=== PATIENT | female | born 1980 | race Asian ===

== ENCOUNTER → 2018-06-13 | Outpatient (CLI) | payer OTHER | LOC: FIMAGING 12:08 | PROVIDERS: ATTEND Advanced Practice Midwife | DX: O09.522 Supervision of elderly multigravida, second trimester (principal); Z3A.19 19 weeks gestation of pregnancy ==

== ENCOUNTER 2018-11-04 05:23 | Inpatient (IN) | payer OTHER ==
[2018-11-04] MEDS ORDERED: EPSOM SALT 454 GM TP PRN (05:34)
[2018-11-04] MEDS ORDERED: OLIVE OIL 118 ML BTL MISC PRN (05:34)
[2018-11-04] MEDS ORDERED: MISOPROSTOL 200 MCG TAB PR PRN (05:34)
[2018-11-04] MEDS ORDERED: IBUPROFEN 600 MG TAB PO PRN (05:34)
[2018-11-04] MEDS ORDERED: LR 1,000 ML IV PRN (05:34)
[2018-11-04] MEDS ORDERED: TERBUTALINE SULFATE 1 MG/ML VIAL IV PRN (05:34)
[2018-11-04] MEDS ORDERED: LIDOCAINE 1% 300 MG/30 ML SDV SC PRN (05:34)
[2018-11-04] MEDS ORDERED: OXYTOCIN/RINGERS LACTATE 1,000 ML IV PRN (05:34)
[2018-11-04 06:06] LABS: PLATELET COUNT 190 10^3/uL (150-400)
[2018-11-04] MEDS ORDERED: TERBUTALINE SULFATE 1 MG/ML VIAL ONE (06:45)
[2018-11-04] MEDS ORDERED: OLIVE OIL 118 ML BTL ONE (06:45)
[2018-11-04] MEDS ORDERED: AMMONIA AROMATIC 1 EACH AMP IH ONE (06:45)
[2018-11-04] MEDS ORDERED: LIDOCAINE 1% 300 MG/30 ML SDV ONE (06:45)
[2018-11-04] MEDS ORDERED: MISOPROSTOL 200 MCG TAB ONE (06:46)
[2018-11-04] MEDS ORDERED: OXYTOCIN 10 UNIT/ML VIAL ONE (06:46)
--- NOTE | 2018-11-04 07:47 | PDGENHP ---
History and Physical History and Physical: Care: [facility] HPI: Patient is a 37 yo G 2 P 1 @ 40 weeks that presents to L&D with complaints of strong uterine contractions. Pt was scheduled for elective IOL, but presented in active labor. EDC: 11/04/18 which is based on LMP: 01/28/18 which is known and consistent with Ultrasound at 9 weeks. Her is complicated by: AMA Review of Systems: Constitutional: Denies any fever, chills, or fatigue HEENT: denies any visual changes, difficulty swallowing, hearing loss Cardiovascular: Denies any chest pain, palpitations, leg swelling Respiratory: denies any cough, wheezing, or shortness of breathe GI: Denies any nausea, vomiting, diarrhea, constipation : denies any dysuria, urgency, frequency, vaginal bleeding Musculoskeletal: denies any muscle or bone pain Skin: denies any rashes Neuro: denies any headache, seizures, lightheadedness, dizziness, or loss of consciousness Psychiatric: denies any depression, anxiety, or SI/HI thoughts HISTORY: Previous OB history: 6 # 1 oz 2016 Past medical history: migraine with aura occasional Past surgical history: appendectomy Social: Denies any alcohol, tobacco, or drug use. Family history: Father type 1 diabetes Medications: PNV Allergies (list reaction): mild shell fish allergy LABS: Rh: A+ ABS: Neg Rubella: Non-Immune HbsAg: NR HIV: NR VDRL: NR 1hr: 70 GC: Neg Chlamydia: Neg Pap: Normal GBS: neg BMI: (prepreg) 20.5 PHYSICAL EXAM: Constitutional: WN, A&Ox3 HEENT: normocephalic atraumatic, supple Skin: Warm, dry, intact Heart: RRR, no murmur Chest: CTA-B Abdomen: Soft, nontender, gravid SVE: 9/100/0 Extremities: no edema, negative homans sign Neuro: grossly normal Psych: normal affect assessment: FHT baseline 145 +accels, occasional variable decels, moderate variability Contractions: toco q 5 Assessment: 1) 37 yo G 2 P 1 with IUP@ 40 2) active labor 3) GBS neg 4) Cat 1 FHR tracing Plan: 1) Admit to L&D 2) anticipate
--- NOTE | 2018-11-04 08:50 | OBDEL ---
Info Type: Vaginal Presentation at Delivery: Vertex L&D Analgesia/Anesthesia Type: None GBS+: No - Hospital Course Intrapartum: 11/04/18 08:46 progressed rapidly to complete after arrival at hospital. FHT reassuring with intermittent auscultation. Indications for Delivery: Spontaneous Labor Vaginal Delivery - Delivery Provider Delivery Physician/CNM: Symone Frey - Labor and Delivery Onset of Contractions Date: 11/04/18 Onset of Contractions Time: 01:00 Onset of Contractions Type: Spontaneous Rupture of Membranes Date: 11/04/18 Rupture of Membranes Time: 07:27 Rupture of Membranes Type: Artificial Amniotic Fluid Color: Clear Dilation Complete Date: 11/04/18 Dilation Complete Time: 07:45 Placenta Delivery Date: 11/04/18 Placenta Delivery Time: 08:25 Total Hours of Labor: 7 Non-surgical Procedures: Amniotomy Vaginal Sponge Count Correct: Yes Vaginal Needle Count Correct: Yes Vaginal Sweep Performed: Yes Delivery Events: None Delivery Comment: intact perineum [place] Data ROSY: 11/04/18 Gestational Age: 40 week(s) and 0 day(s) Johnson Delivery Date: 11/04/18 Delivery Time: 08:15 Sex of Infant: Male Score (1 Min): 9 Score (5 Min): 9 ICD10 Worksheet Patient Problems: Problems Problem Status Onset (normal spontaneous vaginal delivery) Acute - ICD10 Problem Qualifiers (1) (normal spontaneous vaginal delivery)
[2018-11-04] MEDS: IBUPROFEN 600 MG TAB PO SCH ×2 (15:23→21:40)
[2018-11-04] MEDS: ACETAMINOPHEN 325 MG TAB PO SCH ×2 (18:43→22:43)
[2018-11-05 07:20] VITALS: BP 112/51
[2018-11-05] MEDS: IBUPROFEN 600 MG TAB PO SCH (12:10)
--- NOTE | 2018-11-05 12:10 | OBPP ---
Progress Note Assessment/Plan: Assessment: Normal PP progress. Breast feeding well. Plan: D/C home today. 11/05/18 12:09 Subjective/ Course: 11/05/18 12:10 Bleeding normal. Denies pain. Breast feeding well. Objective: 11/04/18 05:50 Patient ABO/Rh A POSITIVE 11/04/18 05:50 Temp Pulse Resp BP Pulse Ox 36.5 C 75 16 112/51 L 95 11/05/18 07:19 11/05/18 07:19 11/05/18 07:19 11/05/18 07:19 11/05/18 07:19 VSS Uterine Position/Fundal Height: At Umbilicus Uterine Tone: Firm
--- NOTE | 2018-11-05 12:14 | OBGCSDC ---
General Delivery Information - General Info : 2 Para: 2 Abortions: 0 Type: Vaginal L&D Analgesia/Anesthesia Type: None Admission Date: 11/04/18 Labs: Patient ABO/Rh A POSITIVE 11/04/18 05:50 Hct 41.0 % (38.0-47.0) 11/04/18 05:50 - Hospital Course Intrapartum: 11/04/18 08:46 progressed rapidly to complete after arrival at hospital. FHT reassuring with intermittent auscultation. : 11/05/18 12:10 Bleeding normal. Denies pain. Breast feeding well. Vaginal - Delivery Provider Delivery Physician/CNM: Symone Frey - Diagnosis Labor: Spontaneous Rupture of Membranes Type: Artificial Amniotic Fluid Color: Clear Delivery Events: None - Procedures Non-surgical Procedures: Amniotomy - Delivery Non-surgical Procedures: Amniotomy [place] Data ROSY: 11/04/18 Gestational Age: 40 week(s) and 1 day(s) Johnson Delivery Date: 11/04/18 Delivery Time: 08:15 Sex of : Male Weight (gm): 0 g Score (1 Min): 9 Score (5 Min): 9 Discharge Information - Discharge Information Instruction/Follow Up: Two Weeks, Four Weeks, Six Weeks
== END 2018-11-05 13:00 | disposition home or self-care (01) | DRG 807 ==
LOC: FLD 05:23 → FOB 10:55
PROVIDERS: ADMIT Advanced Practice Midwife; ATTEND Advanced Practice Midwife
DX: O80 Encounter for full-term uncomplicated delivery (principal); Z37.0 Single live birth; Z3A.40 40 weeks gestation of pregnancy
CPT/HCPCS: J2590; J3105